=== PATIENT | male | born 1950 | race American Indian/Alaskan Native ===

== ENCOUNTER 2016-10-25 08:11 | Outpatient (CLI) | payer MEDICARE ==
[2016-10-25 08:45] LABS: Blood Urea Nitrogen 19 mg/dL (9-20)
--- NOTE | 2016-10-25 11:10 | Magnetic Resonance Report ---
MRI BRAIN WITH/WITHOUT CONTRAST: History: Stroke, CVA Technique: Multiple T1 and T2 weighted images were obtained in multiple planes. Axial diffusion and gradient imaging was performed. Post contrast T1 images in two planes were obtained following IV gadolinium. Findings: The brain parenchyma signal intensity and its jauregui-white interface are normal on all sequences. Minimal nonspecific T2 signal abnormalities in the white matter are noted and consistent with chronic small vessel disease. These findings appear appropriate for this patient's age. No diffusion restriction, hemorrhage, mass effect or extra-axial fluid collection. Ventricular size is normal and symmetric. The basal cisterns are clear. The brainstem and cerebellar hemispheres are within normal limits. The fourth ventricle is midline. The paranasal sinuses and mastoid air cells are well aerated. Normal flow voids are identified in the appropriate vessels at the [place]. No abnormal enhancement is identified following IV gadolinium. Impression: MRI brain within normal limits for age. Minimal chronic white matter changes. No evidence for CVA or abnormal enhancement.
--- NOTE | 2016-10-25 11:14 | Magnetic Resonance Report ---
MRA NECK WITHOUT CONTRAST HISTORY: CVA, stroke. TECHNIQUE: [id number] imaging with MIP reformations of the carotid arterial system is submitted. 3-dimensional MRA following IV gadolinium. FINDINGS: The aortic arch, innominate artery and proximal bilateral subclavian arteries are widely patent with less than 20% stenosis. The bilateral CCAs are widely patent with less than 20% stenosis. There is subtle irregularity of the proximal and mid portions of the right ICA consistent with mild atherosclerotic plaques. Less than 50% stenosis is present within the right ICA. The left ICA is widely patent with less than 20% stenosis. The bilateral vertebral arteries are codominant and widely patent with less than 20% stenosis. IMPRESSION: Mild atherosclerotic disease is suspected in the proximal and mid portions of the right ICA as described above. No hemodynamically significant stenosis is detected. If further evaluation is needed, carotid Doppler ultrasound or CTA neck may provide additional information.
--- NOTE | 2016-10-25 11:17 | Magnetic Resonance Report ---
MRA HEAD WITH AND WITHOUT WITHOUT CONTRAST HISTORY: Stroke, CVA. [id number] imaging with MIP reformations of the [place] is submitted. 3-dimensional MRA following IV gadolinium. The arteries appear widely patent and free of hemodynamically significant stenosis or aneurysm dilatation. Both vertebral arteries are identified appearing patent as well. A moderate left posterior communicating artery is identified. IMPRESSION: Unremarkable MRA head.
== END 2016-10-25 08:12 | disposition home or self-care (01) ==
LOC: MRI 08:11
PROVIDERS: ATTEND Psychiatry & Neurology Neurology
DX: I63.9 Cerebral infarction, unspecified (principal)
CPT/HCPCS: 36415; 70544; 70549; 70553; 82565; 84520; A9577